=== PATIENT | male | born 1960 | race Caucasian/White ===

== ENCOUNTER 2023-04-03 12:31 | Emergency (ER) | payer MEDICARE, OTHER ==
[~2023-04-03] VITALS: Ht 170.1 cm; Wt 59.0 kg
[2023-04-03 12:55] LABS: BASOPHILS # (AUTO) 0.1 10^3/uL (0.0-0.1); BASOPHILS % (AUTO) 1 % (0-10); EOSINOPHILS # (AUTO) 0.2 10^3/uL (0.0-0.3); EOSINOPHILS % (AUTO) 5 % (0-10); HEMATOCRIT 44 % (40-54); HEMOGLOBIN 14.7 g/dL (13.3-17.7); LYMPHOCYTES # (AUTO) 1.1 10^3/uL (1.0-4.0); LYMPHOCYTES % (AUTO) 25 % (12-44); MEAN CORPUSCULAR HEMOGLOBIN 31 pg (25-34); MEAN CORPUSCULAR HGB CONC 34 g/dL (32-36); MEAN CORPUSCULAR VOLUME 93 fL (80-99); MONOCYTES # (AUTO) 0.3 10^3/uL (0.0-1.0); MONOCYTES % (AUTO) 7 % (0-12); NEUTROPHILS # (AUTO) 2.8 10^3/uL (1.8-7.8); NEUTROPHILS % (AUTO) 63 % (42-75); PLATELET COUNT 233 10^3/uL (130-400); WHITE BLOOD COUNT 4.4 10^3/uL (4.3-11.0)
[2023-04-03] MEDS ORDERED: ASPIRIN 81 MG CHEW (CHILDREN'S ASA) PO ONE (13:00)
[2023-04-03 13:13] LABS: ALANINE AMINOTRANSFERASE 9 U/L (0-55); ALKALINE PHOSPHATASE 128 U/L (40-136); BILIRUBIN,TOTAL 0.6 MG/DL (0.1-1.0); BUN/CREATININE RATIO 11; CALCIUM 9.2 MG/DL (8.5-10.1); CARBON DIOXIDE 22 MMOL/L (21-32); CHLORIDE 103 MMOL/L (98-107); CREATININE SERUM 0.83 MG/DL (0.60-1.30); GFR ESTIMATED 97; GLUCOSE 105 MG/DL (70-105); SODIUM 139 MMOL/L (135-145)
[2023-04-03 13:14] LABS: TOTAL PROTEIN 6.7 GM/DL (6.4-8.2)
--- NOTE | 2023-04-03 13:16 | Diagnostic Imaging Report ---
INDICATION: Chest pain. EXAMINATION: Portable chest at 01:00 p.m. FINDINGS: Heart and mediastinum are normal. Lungs are clear. There are no effusions or pneumothoraces. IMPRESSION: No acute abnormalities in the chest. Dictated by: Dictated on workstation # [id number]
--- NOTE | 2023-04-03 13:21 | ED Chest Pain ---
General Chief Complaint: Cardiac/General Problems Stated Complaint: CHEST PAIN Nursing Triage Note: Patient brought in via EMS with c/o Lt. sided chest pain and tingling down Lt. arm. Patient states he got pulled over by the police a couple hrs ago and states the pain started at that time. Patient states he normally has pain like this when he gets stressed out. Patient states he has been drinkin alcohol today with drinking a beer an hr. Patient states he used Meth and THC last night. Patient denies any shortness of breath. Patient was able to walk into ER room #5 from ambulance bay. Source: patient, RN notes reviewed, EMS notes reviewed Exam Limitations: no limitations History of Present Illness Date Seen by Provider: Apr 03, 2023 Time Seen by Provider: 12:40 Initial Comments 63-year-old male patient with history of hyperlipidemia and alcohol and substance abuse brought in by EMS because of chest pain. Patient was pulled over by police about 2 hours ago and complaining of chest pain and requested to come to ER for evaluation. Patient complaining of left upper chest pain as an aching pain associated with left upper extremity numbness without radiation of pain or shortness of breath. Patient rated his pain between 2 and 9 and rated his pain 4 at arrival to ER and asking for baby aspirin for resolving his pain. Patient states he has had the same episode of pain for the last 5 years and usually his pain related to stress or exertion and resolves with aspirin. Patient admitted to drink alcohol frequently and is stated he had 3 cans of beers today and used marijuana and methamphetamine last night. Patient is alert and oriented and denies suicidal or homicidal ideation. Patient is talking constantly and asking for aspirin frequently. Patient denies nausea and vomiting, fever and chills, cough and congestion, urinary symptoms. Allergies and Home Medications Allergies Coded Allergies: codeine (Verified Allergy, Mild, Hives, 04/03/23) Patient Home Medication List Home Medication List Reviewed: Yes Review of Systems Review of Systems Constitutional: see HPI EENTM: See HPI Respiratory: See HPI Cardiovascular: See HPI Gastrointestinal: See HPI Genitourinary: See HPI Musculoskeletal: see HPI Skin: see HPI Psychiatric/Neurological: See HPI Endocrine: See HPI Hematologic/Lymphatic: See HPI All Other Systems Reviewed Negative Unless Noted: Yes Past Okgrmhs-Aagmkh-Eplkol Hx Patient Social History Tobacco Use?: Yes Tobacco type used: Cigarettes Smoking Status: Current Everyday Smoker Use of E-Cig and/or Vaping dev: No Substance use?: Yes Substance type: Methamphetamine, Marijuana Alcohol Use?: Yes Alcohol type: Beer Alcohol Frequency: Daily Pt feels they are or have been: No Immunizations Up To Date Influenza Vaccine Up-to-Date: No; Not Current Physical Exam Vital Signs Vital Signs - First Documented 04/03/23 12:31 Temp 36.6 Pulse 100 Resp 16 B/P (MAP) 132/88 (103) Pulse Ox 97 O2 Delivery Room Air Capillary Refill : Height, Weight, BMI Height: '" Weight: lbs. oz. kg; 20.00 BMI Method: General Appearance: No Apparent Distress, Anxious HEENT: PERRL/EOMI, Normal ENT Inspection, Pharynx Normal Neck: Full Range of Motion, Normal Inspection, Non Tender Respiratory: Chest Non Tender, Lungs Clear, Normal Breath Sounds, No Accessory Muscle Use, No Respiratory Distress Cardiovascular: Regular Rate, Rhythm, No Edema, No Gallop, No JVD, No Murmur, Normal Peripheral Pulses Gastrointestinal: Normal Bowel Sounds, No Organomegaly, No Pulsatile Mass, Non Tender Extremity: Normal Capillary Refill, Normal Inspection, Normal Range of Motion, Non Tender, No Calf Tenderness, No Pedal Edema Neurologic/Psychiatric: Alert, Oriented x3, No Motor/Sensory Deficits, Normal Mood/Affect Skin: Normal Color, Warm/Dry Lymphatic: No Adenopathy Progress/Results/Core Measures Results/Orders Lab Results Laboratory Tests Test 04/03/23 12:45 04/03/23 15:02 04/03/23 15:22 Range/Units White Blood Count 4.4 4.3-11.0 10^3/uL Red Blood Count 4.71 4.30-5.52 10^6/uL Hemoglobin 14.7 13.3-17.7 g/dL Hematocrit 44 40-54 % Mean Corpuscular Volume 93 80-99 fL Mean Corpuscular Hemoglobin 31 25-34 pg Mean Corpuscular Hemoglobin Concent 34 32-36 g/dL Red Cell Distribution Width 12.8 10.0-14.5 % Platelet Count 233 130-400 10^3/uL Mean Platelet Volume 8.0 L 9.0-12.2 fL Immature Granulocyte % (Auto) 0 % Neutrophils (%) (Auto) 63 42-75 % Lymphocytes (%) (Auto) 25 12-44 % Monocytes (%) (Auto) 7 0-12 % Eosinophils (%) (Auto) 5 0-10 % Basophils (%) (Auto) 1 0-10 % Neutrophils # (Auto) 2.8 1.8-7.8 10^3/uL Lymphocytes # (Auto) 1.1 1.0-4.0 10^3/uL Monocytes # (Auto) 0.3 0.0-1.0 10^3/uL Eosinophils # (Auto) 0.2 0.0-0.3 10^3/uL Basophils # (Auto) 0.1 0.0-0.1 10^3/uL Immature Granulocyte # (Auto) 0.0 0.0-0.1 10^3/uL Prothrombin Time 12.3 12.2-14.7 SEC INR Comment 0.9 0.8-1.4 Activated Partial Thromboplast Time 30 24-35 SEC Sodium Level 139 135-145 MMOL/L Potassium Level 4.0 3.6-5.0 MMOL/L Chloride Level 103 98-107 MMOL/L Carbon Dioxide Level 22 21-32 MMOL/L Anion Gap 14 5-14 MMOL/L Blood Urea Nitrogen 9 7-18 MG/DL Creatinine 0.83 0.60-1.30 MG/DL Estimat Glomerular Filtration Rate 97 BUN/Creatinine Ratio 11 Glucose Level 105 70-105 MG/DL Calcium Level 9.2 8.5-10.1 MG/DL Corrected Calcium 9.2 8.5-10.1 MG/DL Total Bilirubin 0.6 0.1-1.0 MG/DL Aspartate Amino Transf (AST/SGOT) 17 5-34 U/L Alanine Aminotransferase (ALT/SGPT) 9 0-55 U/L Alkaline Phosphatase 128 40-136 U/L Troponin I < 0.30 < 0.30 <0.30 NG/ML Total Protein 6.7 6.4-8.2 GM/DL Albumin 4.0 3.2-4.5 GM/DL Serum Alcohol < 10 <10 MG/DL Urine Opiates Screen NEGATIVE NEGATIVE Urine Oxycodone Screen NEGATIVE NEGATIVE Urine Methadone Screen NEGATIVE NEGATIVE Urine Propoxyphene Screen NEGATIVE NEGATIVE Urine Barbiturates Screen NEGATIVE NEGATIVE Ur Tricyclic Antidepressants Screen NEGATIVE NEGATIVE Urine Phencyclidine Screen NEGATIVE NEGATIVE Urine Amphetamines Screen POSITIVE H NEGATIVE Urine Methamphetamines Screen POSITIVE H NEGATIVE Urine Benzodiazepines Screen NEGATIVE NEGATIVE Urine Cocaine Screen POSITIVE H NEGATIVE Urine Cannabinoids Screen POSITIVE H NEGATIVE My Orders Orders - KAILEY LOO MD Cbc With Automated Diff (04/03/23 12:46) Chest 1 View Ap/Pa Only (04/03/23 12:46) Ekg Tracing (04/03/23 12:46) Comprehensive Metabolic Panel (04/03/23 12:46) Protime With Inr (04/03/23 12:46) Partial Thromboplastin Time (04/03/23 12:46) Monitor-Rhythm Ecg Trace Only (04/03/23 12:46) Ed Iv/Invasive Line Start (04/03/23 12:46) Troponin I Fs (04/03/23 12:46) Alcohol (04/03/23 12:46) Drug Screen Stat (Urine) (04/03/23 12:46) Aspirin Chewable Tablet (Baby Aspirin Ch (04/03/23 13:00) Troponin I Fs (04/03/23 14:24) Ketorolac Injection (Toradol Injection) (04/03/23 14:30) Medications Given in ED Current Medications Medications Dose Ordered Sig/Ines Route Start Time Stop Time Status Last Admin Dose Admin Aspirin 324 mg ONCE ONCE PO 04/03/23 13:00 04/03/23 13:01 DC 04/03/23 13:09 324 MG Ketorolac Tromethamine 30 mg ONCE ONCE IVP 04/03/23 14:30 04/03/23 14:31 DC 04/03/23 15:14 30 MG Vital Signs/I&O 04/03/23 04/03/23 12:31 16:08 Temp 36.6 Pulse 100 79 Resp 16 12 B/P (MAP) 132/88 (103) 124/83 Pulse Ox 97 96 O2 Delivery Room Air Room Air Blood Pressure Mean: 103 Progress Progress Note : Progress Note 63-year-old male patient with history of substance abuse brought in by EMS because of complaining of chest pain after pulled over by EMS police. Patient had unremarkable physical exam and asking for aspirin frequently because he had the same chest pain for 5 years intermittently and responding to aspirin very good. Patient treated with aspirin but he stated his pain is completely resolved. Patient had unremarkable physical exam, vital sign. CBC and CMP and troponin was ordered by me and did not show acute finding. Repeat troponin after 2 hours was negative. UDS was positive for amphetamine, methamphetamine, cocaine and marijuana. Blood alcohol was less than 10. Patient treated with Toradol and advised to follow-up with primary care physician for chronic chest pain due to finding acute abnormality and EKG and blood test. Patient advised to quit using drugs. Initial ECG Impression Date: Apr 03, 2023 Initial ECG Impression Time: 12:51 Initial ECG Rhythm: Normal Sinus Initial ECG Intervals EKG interpreted by me. EKG showed normal sinus rhythm at rate of 90, incomplete right bundle branch block, CO interval of 140 and QT of 353 and QTc of 401, QRS duration of 98, no acute ST and T wave elevation. Diagnostic Imaging Diagonstic Imaging: Xray Plain Films/CT/US/NM/MRI: chest Comments 1 view chest x-ray interpreted by radiologist and reviewed by me and showed: [facility], [place] NAME: JORDAN ADRIAN [facility] REC#: [id number] PT STATUS: REG ER : 1960 PHYSICIAN: KAILEY LOO MD ADMIT DATE: 04/03/23/ER FS Signed Date of Exam:04/03/23 CHEST 1 VIEW AP/PA ONLY INDICATION: Chest pain. EXAMINATION: Portable chest at 01:00 p.m. FINDINGS: Heart and mediastinum are normal. Lungs are clear. There are no effusions or pneumothoraces. IMPRESSION: No acute abnormalities in the chest. Dictated by: Dictated on workstation # [id number] Dict: 04/03/23 1311 Trans: 04/03/23 1359 [id number] Interpreted by: GERARD HERMAN MD Electronically signed by: GERARD HERMAN MD 04/03/23 1359 Departure Impression Primary Impression: Non-cardiac chest pain Additional Impression: Polysubstance abuse Disposition: HOME, SELF-CARE Condition: Improved Departure-Patient Inst. Decision time for Depature: 16:00 Patient Instructions: Chest Pain, Adult ED, Drug Misuse and Addiction (DC) Add. Discharge Instructions: Follow-up with your primary care physician in 2 to 3 days Return to ER as needed All discharge instructions reviewed with patient and/or family. Voiced understanding. KAILEY LOO MD Apr 03, 2023 13:21
[2023-04-03 13:26] LABS: INR 0.9 (0.8-1.4); PROTHROMBIN TIME PATIENT 12.3 SEC (12.2-14.7)
[2023-04-03] MEDS ORDERED: KETOROLAC 30 MG/ML VIAL IVP ONE (14:30)
[2023-04-03 15:30] LABS: AMPHETAMINE SCREEN, URINE POSITIVE (NEGATIVE); BARBITURATE SCREEN URINE NEGATIVE (NEGATIVE); BENZODIAZEPINES SCREEN URINE NEGATIVE (NEGATIVE); CANNABINOID SCREEN, URINE POSITIVE (NEGATIVE); COCAINE SCREEN URINE POSITIVE (NEGATIVE); METHADONE STAT NEGATIVE (NEGATIVE); OPIATE SCREEN URINE NEGATIVE (NEGATIVE); OXYCODONE STAT NEGATIVE (NEGATIVE); PROPOXYPHENE STAT NEGATIVE (NEGATIVE); TRICYCLIC ANTIDEPRESSANTS SCRE NEGATIVE (NEGATIVE)
[2023-04-03 16:08] VITALS: BP 124/83
== END 2023-04-03 16:08 | disposition home or self-care (01) ==
LOC: ER FS 12:33
DX: R07.89 Other chest pain (principal); F15.10 Other stimulant abuse, uncomplicated; F14.10 Cocaine abuse, uncomplicated; F12.10 Cannabis abuse, uncomplicated; F17.210 Nicotine dependence, cigarettes, uncomplicated; Y90.0 Blood alcohol level of less than 20 mg/100 ml
CPT/HCPCS: 36415; 71045; 80053; 80306; 84484; 85025; 85610; 85730; 93041; G0480; 80320; 93005